=== PATIENT | male | born 1970 | race Two or more races ===

== ENCOUNTER 2019-01-15 10:55 | Day surgery (SDC) | payer BC, OTHER ==
[~2019-01-15] VITALS: Ht 162.6 cm; Wt 70.4 kg
[2019-01-15 11:06] VITALS: Ht 162.6 cm; Wt 70.4 kg
[2019-01-15 12:13] VITALS: BP 121/83; PULSE 85; RESP 18
--- NOTE | 2019-01-15 12:17 | PREAC ---
Date/Time of Note Date/Time of Note DATE: 01/15/19 TIME: 12:13 Anesthesia Eval and Record Evaluation Time Pre-Procedure Interview DATE: 01/15/19 TIME: 12:13 Age 48 Sex male NPO: 8 hrs Preoperative diagnosis dislodged feeding tube Planned procedure EGD PEG to percutaneous jejunostomy. Past Medical History Past Medical History: Includes Cardio: HTN, Dyslipidemia Pulm: Smoking Hx Neuro: Other (history of intracerebral hemorrhage) GI: Other (crohn's disease ) Infection(s): HIV, Hep C Recreational drugs: Other (history of polysubstance abuse) Surgery & Anesthesia Issues No known issue Meds Anticoagulation: No Beta Michelle within 24 hr: No Reason Beta Michelle not given: Pt. not on B-Michelle Meds reviewed: Yes Allergies Coded Allergies: clindamycin (Verified Allergy, Unknown, unknown, 01/13/19) Uncoded Allergies: SULFA DRUGS (Allergy, Unknown, unknown, 01/13/19) Allergies Reviewed: Yes Labs/Studies Labs Reviewed: Reviewed by anesthesiologist test: N/A Studies: ECG Pre-procedure Exam Airway: Adequate mouth opening, Adequate thyromental dist Mallampati: Mallampati II Teeth: Normal Lung: Abnormal (trach in place ) Heart: Normal ASA Physical Status ASA physical status: 3 Emergency: None Planned Anesthetic General/MAC: Other (O2 via trach ) Planned Pain Management Parenteral pain med Pre-operative Attestations Prior to commencing anesthesia and surgery, the patient was re-evaluated, there was verification of: *The patient's identity *The results of appropriate recent lab work and preoperative vital signs *The above evaluation not changing prior to induction *Anesthetic plan, risk benefits, alternative and complications discussed with patient/family; questions answered; patient/family understands, accepts and wishes to proceed. NANCY BOYD MD Jan 15, 2019 12:17
[2019-01-15] MEDS ORDERED: LIDOCAINE 2% (SDV) 5 ML INJ ONE (12:23)
[2019-01-15] MEDS ORDERED: PROPOFOL 40 ML ONE (12:23)
[2019-01-15] MEDS ORDERED: HYDROmorphONE 1 MG/5 ML IV SYRINGE IV PRN (12:30)
[2019-01-15] MEDS ORDERED: ONDANSETRON 4 MG INJ IV PRN (12:30)
[2019-01-15] MEDS ORDERED: FENTAnyl 50 MCG/ML VIAL IV PRN (12:30)
[2019-01-15] MEDS ORDERED: PROPOFOL 20 ML ONE (12:33)
[2019-01-15] MEDS ORDERED: CEFAZOLIN 1 GM/50 ML (PMX) 50 ML IVPB ONE ×2 (12:39)
--- NOTE | 2019-01-15 13:05 | PAC ---
Date/Time of Note Date/Time of Note DATE: 01/15/19 TIME: 13:05 Post-Anesthesia Notes Post-Anesthesia Note Last documented vital signs Vital Signs Date Temp Pulse Resp B/P (MAP) Pulse Ox O2 O2 Flow FiO2 Time Delivery Rate 01/15/19 98.4 85 18 121/83 100 Trach 6.0 12:13 (96) Collar Activity: WNL Respiratory function: WNL Cardiovascular function: WNL Mental status: Baseline Pain reasonably controlled: Yes Hydration appropriate: Yes Nausea/Vomiting absent: Yes Comments BP: 114/79 HR: 89 RR: 15 T: 98 SaO2: 98% NANCY OBYD MD Jan 15, 2019 13:05
[2019-01-15 13:07] VITALS: BP 137/98; PULSE 85; RESP 18
== END 2019-01-15 14:48 | disposition home or self-care (01) ==
LOC: GIL 10:55
PROVIDERS: ATTEND Internal Medicine Gastroenterology
DX: R13.10 Dysphagia, unspecified (principal); I10 Essential (primary) hypertension; Z87.891 Personal history of nicotine dependence
CPT/HCPCS: 43762; J0690

== ENCOUNTER 2019-02-02 12:11 | Inpatient (IN) | payer BC ==
[~2019-02-02] VITALS: Ht 165.1 cm; Wt 75.2 kg
[2019-02-02 20:30] VITALS: BP 105/67; PULSE 97; RESP 18
[2019-02-02 20:46] VITALS: Ht 165.1 cm; Wt 75.2 kg
[2019-02-02] MEDS ORDERED: ZOLPIDEM 5 MG TAB PO PRN (21:00)
[2019-02-02] MEDS: METOPROLOL 25 MG TAB PO SCH (21:00)
[2019-02-02] MEDS ORDERED: ONDANSETRON 4 MG INJ IV PRN (21:00)
[2019-02-02] MEDS ORDERED: ACETAMINOPHEN 325 MG TAB PO PRN (21:00)
[2019-02-02] MEDS: DOCUSATE SODIUM 100 MG CAP PO SCH (21:00)
[2019-02-02] MEDS ORDERED: BISACODYL 10 MG SUPP PR PRN (21:00)
[2019-02-02] MEDS: SENNA TAB PO SCH (21:00)
[2019-02-02] MEDS ORDERED: CHLORHEXIDINE GLUCONATE 15 ML UD CUP MT SCH (21:00)
[2019-02-02] MEDS ORDERED: LACTULOSE 30ML CUP PO PRN (21:00)
[2019-02-02] MEDS ORDERED: PENDING SANTYL ORDER FOR WOUND CARE XX PRN (21:30)
[2019-02-02] MEDS: ATORVASTATIN 10 MG TAB PO SCH (22:02)
[2019-02-02] MEDS: QUETIAPINE 100 MG TAB PO SCH (22:04)
[2019-02-03 02:00] VITALS: BP 113/62; PULSE 86; RESP 18
[2019-02-03] MEDS: LANSOPRAZOLE (SOLTAB) 30 MG TAB PO SCH (06:49)
[2019-02-03 07:30] VITALS: BP 122/85; PULSE 93; RESP 20
[2019-02-03] MEDS: ELVITEGR/COBICIST/EMTRIC/TENOF 1 EACH TABLET PO SCH (08:48)
[2019-02-03] MEDS: METOPROLOL 25 MG TAB PO SCH ×2 (08:49→20:38)
[2019-02-03] MEDS: ENOXAPARIN 40 MG/0.4 ML SYG SC SCH (08:53)
[2019-02-03] MEDS: AMLODIPINE 5 MG TAB PO SCH (08:57)
[2019-02-03] MEDS: DOCUSATE SODIUM 100 MG CAP PO SCH ×2 (09:00→20:40)
[2019-02-03] MEDS: QUETIAPINE 100 MG TAB PO SCH ×2 (09:00→20:35)
[2019-02-03 14:00] VITALS: BP 121/75; PULSE 94; RESP 18
[2019-02-03 20:00] VITALS: BP 119/80; PULSE 112; RESP 16
[2019-02-03] MEDS: ATORVASTATIN 10 MG TAB PO SCH (20:35)
[2019-02-03] MEDS: SENNA TAB PO SCH (20:40)
[2019-02-04 02:00] VITALS: BP 114/76; PULSE 74; RESP 18
[2019-02-04] MEDS: LANSOPRAZOLE (SOLTAB) 30 MG TAB PO SCH (06:22)
[2019-02-04 07:00] VITALS: BP 121/82; PULSE 88; RESP 18
[2019-02-04] MEDS: DOCUSATE SODIUM 100 MG CAP PO SCH ×2 (09:00→21:00)
[2019-02-04] MEDS: QUETIAPINE 100 MG TAB PO SCH ×2 (09:00→21:15)
[2019-02-04] MEDS: ELVITEGR/COBICIST/EMTRIC/TENOF 1 EACH TABLET PO SCH (09:59)
[2019-02-04] MEDS: METOPROLOL 25 MG TAB PO SCH ×2 (10:00→21:15)
[2019-02-04] MEDS: AMLODIPINE 5 MG TAB PO SCH (10:00)
[2019-02-04] MEDS: ENOXAPARIN 40 MG/0.4 ML SYG SC SCH (10:01)
[2019-02-04 14:00] VITALS: BP 120/76; PULSE 89; RESP 18
[2019-02-04 20:24] VITALS: BP 136/82; PULSE 92; RESP 20
[2019-02-04] MEDS: SENNA TAB PO SCH (21:00)
[2019-02-04] MEDS: ATORVASTATIN 10 MG TAB PO SCH (21:14)
[2019-02-05 03:52] VITALS: BP 134/78; PULSE 88; RESP 18
[2019-02-05] MEDS: LANSOPRAZOLE (SOLTAB) 30 MG TAB PO SCH (06:09)
[2019-02-05 07:30] VITALS: BP 114/82; PULSE 92; RESP 20
[2019-02-05] MEDS: ELVITEGR/COBICIST/EMTRIC/TENOF 1 EACH TABLET PO SCH (09:21)
[2019-02-05] MEDS: QUETIAPINE 100 MG TAB PO SCH ×2 (09:21→20:51)
[2019-02-05] MEDS: DOCUSATE SODIUM 100 MG CAP PO SCH ×2 (09:21→20:56)
[2019-02-05] MEDS: AMLODIPINE 5 MG TAB PO SCH (09:21)
[2019-02-05] MEDS: METOPROLOL 25 MG TAB PO SCH ×2 (09:22→20:57)
[2019-02-05] MEDS: ENOXAPARIN 40 MG/0.4 ML SYG SC SCH (09:28)
[2019-02-05 14:00] VITALS: BP 94/56; PULSE 98; RESP 18
[2019-02-05 20:00] VITALS: BP 98/55; PULSE 93; RESP 18
[2019-02-05] MEDS: ATORVASTATIN 10 MG TAB PO SCH (20:51)
[2019-02-05] MEDS: SENNA TAB PO SCH (20:58)
[2019-02-05] MEDS ORDERED: SOD CHLORIDE 0.9% 100 ML ONE (21:48)
[2019-02-05] MEDS ORDERED: IOHEXOL 100 ML ONE (21:48)
[2019-02-06 02:00] VITALS: BP 113/77; PULSE 88; RESP 18
[2019-02-06] MEDS: LANSOPRAZOLE (SOLTAB) 30 MG TAB PO SCH (06:34)
[2019-02-06 07:30] VITALS: BP 110/79; PULSE 123; RESP 20
[2019-02-06] MEDS: ELVITEGR/COBICIST/EMTRIC/TENOF 1 EACH TABLET PO SCH (08:43)
[2019-02-06] MEDS: DOCUSATE SODIUM 100 MG CAP PO SCH ×2 (08:43→21:00)
[2019-02-06] MEDS: QUETIAPINE 100 MG TAB PO SCH ×2 (08:43→21:16)
[2019-02-06] MEDS: AMLODIPINE 5 MG TAB PO SCH (08:43)
[2019-02-06] MEDS: METOPROLOL 25 MG TAB PO SCH ×2 (08:43→21:00)
[2019-02-06 09:15] VITALS: BP 105/66; PULSE 100; RESP 19
[2019-02-06 14:00] VITALS: BP 106/65; PULSE 100; RESP 20
[2019-02-06 19:49] VITALS: BP 109/68; PULSE 92; RESP 18
[2019-02-06] MEDS: SENNA TAB PO SCH (21:00)
[2019-02-06] MEDS: ATORVASTATIN 10 MG TAB PO SCH (21:16)
[2019-02-07 02:00] VITALS: BP 118/65; PULSE 90; RESP 18
[2019-02-07] MEDS: LANSOPRAZOLE (SOLTAB) 30 MG TAB PO SCH (06:34)
[2019-02-07 08:34] VITALS: BP 161/74; PULSE 116; RESP 18
[2019-02-07] MEDS: QUETIAPINE 100 MG TAB PO SCH ×2 (09:00→20:30)
[2019-02-07] MEDS: DOCUSATE SODIUM 100 MG CAP PO SCH ×2 (09:00→20:30)
[2019-02-07] MEDS: METOPROLOL 25 MG TAB PO SCH ×2 (09:00→20:30)
[2019-02-07] MEDS: AMLODIPINE 5 MG TAB PO SCH (09:00)
[2019-02-07] MEDS: ELVITEGR/COBICIST/EMTRIC/TENOF 1 EACH TABLET PO SCH (09:04)
[2019-02-07 09:07] VITALS: BP 105/69; PULSE 107
[2019-02-07 13:55] VITALS: BP 104/71; PULSE 106; RESP 18
[2019-02-07 15:13] VITALS: BP 107/68; PULSE 89; RESP 17
[2019-02-07 20:06] VITALS: BP 117/78; PULSE 107; RESP 18
[2019-02-07] MEDS: SENNA TAB PO SCH (20:30)
[2019-02-07] MEDS: ATORVASTATIN 10 MG TAB PO SCH (20:30)
[2019-02-08 02:25] VITALS: BP 112/78; PULSE 79; RESP 18
[2019-02-08] MEDS: LANSOPRAZOLE (SOLTAB) 30 MG TAB PO SCH (06:31)
[2019-02-08 07:00] VITALS: BP 126/89; PULSE 91; RESP 18
[2019-02-08] MEDS: METOPROLOL 25 MG TAB PO SCH (08:45)
[2019-02-08] MEDS: DOCUSATE SODIUM 100 MG CAP PO SCH (08:46)
[2019-02-08] MEDS: QUETIAPINE 100 MG TAB PO SCH (08:47)
[2019-02-08] MEDS: ELVITEGR/COBICIST/EMTRIC/TENOF 1 EACH TABLET PO SCH (09:00)
== END 2019-02-08 11:45 | disposition home health service (06) | DRG 92 ==
LOC: VRC 19:46
PROVIDERS: ADMIT Physical Medicine & Rehabilitation; ATTEND Internal Medicine Nephrology
DX: G72.81 Critical illness myopathy (principal); G93.40 Encephalopathy, unspecified; B20 Human immunodeficiency virus [HIV] disease; K50.90 Crohn's disease, unspecified, without complications; F15.20 Other stimulant dependence, uncomplicated; I10 Essential (primary) hypertension; Z74.09 Other reduced mobility; I69.298 Other sequelae of other nontraumatic intracranial hemorrhage; H53.2 Diplopia; F41.9 Anxiety disorder, unspecified; R13.10 Dysphagia, unspecified; D64.9 Anemia, unspecified; R00.0 Tachycardia, unspecified; E78.5 Hyperlipidemia, unspecified; Z87.09 Personal history of other diseases of the respiratory system; Z86.79 Personal history of other diseases of the circulatory system; Z98.890 Other specified postprocedural states; Z86.59 Personal history of other mental and behavioral disorders; Z86.19 Personal history of other infectious and parasitic diseases; B19.20 Unspecified viral hepatitis C without hepatic coma; Z93.1 Gastrostomy status; F06.31 Mood disorder due to known physiological condition with depressive features; Z72.0 Tobacco use
CPT/HCPCS: 70496; 70551; 80048; 80053; 81003; 83735; 84100; 85025; 86360; 87081; 87086; 92507; 92523; 92610; 93306; 97110; 97112; 97116; 97163; 97166; 97530; 97535; J1650; Q9967